=== PATIENT | female | born 1985 ===

== ENCOUNTER 2020-01-29 15:34 | Observation (INO) ==
[2020-01-29] MEDS ORDERED: CLINDAMYCIN INJ 900 MG in PREMIX 1 EACH IV STA (16:05)
[2020-01-29] MEDS ORDERED: KETOROLAC 30 MG/1 ML VIAL IV STA (16:05)
[2020-01-29] MEDS ORDERED: SODIUM CHLORIDE 0.9% 1,000 ML IV STA (16:05)
[2020-01-29 16:51] LABS: Basophils % 0.3 % (0.0-0.8); Eosinophils # 0.1 10*3/uL (0.0-0.87); Eosinophils % 1.2 % (0.00-10.9); Hematocrit 44.6 VOL% (35.7-47.0); Hemoglobin 13.8 GM/DL (12.0-16.0); Immature Granulocytes % 0.4 %; Immature Granulocytes Absolute 0.04 #; Lymphocytes # 1.6 10*3/uL (1.4-4.0); Lymphocytes % 15.6 % (21.3-54.2); Mean Corpuscular HGB Conc 30.9 GM/DL (32-36); Mean Corpuscular Volume 88.3 FL (87-102); Mean Platelet Volume 8.7 FL (9.6-12.0); Monocytes % 4.3 % (1.7-12.7); Neutrophils % 78.2 % (38.7-73.9); Platelet Count 283 T/CUMM (130-400); Red Blood Count 5.05 MC/CUMM (3.8-5.5); Red Cell Distribution Width 15.2 % (9.3-17.3); White Blood Count 10.2 T/CUMM (4-12)
[2020-01-29 17:01] LABS: INR 0.9; PT Patient Result 10.3 SECS (9.6-12.2); Partial Thromboplastin Time 29.2 SECS (20.8-36.0)
[2020-01-29 17:18] LABS: Alanine Aminotransferase 41 U/L (13-56); Albumin 3.2 G/DL (3.4-5.0); Alkaline Phosphatase 114 U/L (45-117); Aspartate Amino Transferase 47 U/L (0-37); Bilirubin,Total < 0.39 MG/DL (0.2-1.0); Blood Urea Nitrogen 8 MG/DL (7-18); Calcium 8.9 MG/DL (8.5-10.1); Estimated Glom Filtration Rate 122 ML/MIN; Glucose 107 MG/DL (74-106); Osmolality,Calculated 270.8 MOS/KG (273-304); Total Protein 7.9 G/DL (6.4-8.3)
[2020-01-29 17:48] LABS: Apearance,Urine CLOUDY (Clear); Bilirubin,Urine Negative (Negative); Blood, Urine Negative (Negative); Glucose,Urine (UA) Negative (Negative); Ketones,Urine Negative (Negative); Mucus,Urine Many /LPF (Occasional); Nitrite,Urine Negative (Negative); Protein,Urine Negative; RBC,Urine 5 /HPF (0-4); Squamous Epithelial Cell,Urine Few /HPF (0-10); Urine Color Yellow (Yellow); Urine Specific Gravity 1.021 (1.001-1.035); Urine Urobilinogen < 2.0 EU/DL (0.2-1.0); WBC,Urine 10 /HPF (0-6)
[2020-01-29] MEDS ORDERED: POTASSIUM BICARB EFFERVESCENT 25 MEQ TABLET PO ONE (18:56)
[2020-01-29] MEDS ORDERED: ONDANSETRON 4 MG/2 ML VIAL IV PRN (18:58)
[2020-01-29] MEDS ORDERED: fentaNYL 100 MCG/2 ML VIAL IV STA (18:58)
[2020-01-29] MEDS: oxyCODONE/ACETAMINOPHEN 5-325 MG TABLET PO PRN (22:08)
[2020-01-30] MEDS: SODIUM CHLORIDE 0.9% 1,000 ML IV SCH ×3 (00:54→17:09)
[2020-01-30] MEDS: CLINDAMYCIN INJ 900 MG in PREMIX 1 EACH IV SCH ×3 (00:55→12:26)
[2020-01-30] MEDS ORDERED: BALANCED SALT IRRIG SOLN 15 ML BOTTLE ONE (13:18)
[2020-01-30] MEDS ORDERED: ACETAMINOPHEN 325 MG TABLET PO PRN (14:18)
[2020-01-30] MEDS ORDERED: ONDANSETRON 4 MG/2 ML VIAL IV PRN ×2 (14:18→14:42)
[2020-01-30] MEDS ORDERED: BENZOCAINE/MENTHOL LOZENGE 18/BOX PO PRN (14:18)
[2020-01-30] MEDS ORDERED: DOCUSATE SODIUM 100 MG CAPSULE PO PRN (14:18)
[2020-01-30] MEDS ORDERED: IBUPROFEN 800 MG TABLET PO PRN (14:18)
[2020-01-30] MEDS ORDERED: BISACODYL 10 MG SUPP RECTAL PRN (14:18)
[2020-01-30] MEDS ORDERED: MAGNESIUM HYDROXIDE SUSP 30 ML UDCUP PO PRN (14:18)
[2020-01-30] MEDS ORDERED: propofoL 200 MG/20 ML VIAL IV ONE (14:33)
[2020-01-30] MEDS ORDERED: LIDOCAINE 2% 5 ML VIAL ONE (14:33)
[2020-01-30] MEDS ORDERED: SEVOFLURANE 1 UNIT/15 MINUTE INH ONE (14:33)
[2020-01-30] MEDS ORDERED: ONDANSETRON 4 MG/2 ML VIAL ONE ×2 (14:34→14:37)
[2020-01-30] MEDS ORDERED: MIDAZOLAM 2 MG/2 ML VIAL ONE (14:34)
[2020-01-30] MEDS ORDERED: PHENYLEPHRINE 1 MG/10 ML SYRINGE IV ONE (14:34)
[2020-01-30] MEDS ORDERED: fentaNYL 100 MCG/2 ML VIAL ONE (14:34)
[2020-01-30] MEDS ORDERED: HYDROmorphone 2 MG/1 ML VIAL ONE (14:37)
[2020-01-30] MEDS: HYDROmorphone 2 MG/1 ML VIAL IV PRN ×2 (14:39→14:46)
[2020-01-30] MEDS: CLINDAMYCIN INJ 300 MG in PREMIX 1 EACH IV SCH ×2 (15:36→21:53)
[2020-01-30] MEDS ORDERED: INFLUENZA VIRUS VACCINE 0.5 ML SYRINGE IM ONE (16:24)
[2020-01-30] MEDS: oxyCODONE/ACETAMINOPHEN 5-325 MG TABLET PO PRN (20:41)
[2020-01-30] MEDS: ceFAZolin 1,000 MG in SYRINGE 1 EACH IV SCH (20:42)
[2020-01-31] MEDS: ceFAZolin 1,000 MG in SYRINGE 1 EACH IV SCH (04:06)
[2020-01-31] MEDS: CLINDAMYCIN INJ 300 MG in PREMIX 1 EACH IV SCH ×2 (05:40→14:31)
[2020-01-31 05:43] LABS: Basophils % 0.4 % (0.0-0.8); Eosinophils # 0.1 10*3/uL (0.0-0.87); Eosinophils % 1.4 % (0.00-10.9); Hematocrit 32.9 VOL% (35.7-47.0); Hemoglobin 10.2 GM/DL (12.0-16.0); Immature Granulocytes % 0.6 %; Immature Granulocytes Absolute 0.06 #; Lymphocytes # 2.2 10*3/uL (1.4-4.0); Lymphocytes % 21.7 % (21.3-54.2); Mean Corpuscular Volume 88.4 FL (87-102); Mean Platelet Volume 10.1 FL (9.6-12.0); Monocytes % 5.6 % (1.7-12.7); Neutrophils % 70.3 % (38.7-73.9); Platelet Count 281 T/CUMM (130-400); Red Blood Count 3.72 MC/CUMM (3.8-5.5); Red Cell Distribution Width 15.2 % (9.3-17.3)
[2020-01-31] MEDS: SODIUM CHLORIDE 0.9% 1,000 ML IV SCH ×2 (05:43→17:18)
[2020-01-31] MEDS: oxyCODONE/ACETAMINOPHEN 5-325 MG TABLET PO PRN ×3 (08:31→20:16)
[2020-01-31 15:51] VITALS: BP 107/49
== END 2020-01-31 22:40 | disposition home or self-care (01) ==
LOC: N.EDINP 15:34 → N.ED 15:34 → N.3E 19:40
PROVIDERS: ADMIT Obstetrics & Gynecology; ATTEND Obstetrics & Gynecology